=== PATIENT | female | born 1950 | race Caucasian/White ===

== ENCOUNTER 2017-02-19 09:20 | Day surgery (SDC) | payer MEDICARE ==
[~2017-02-19 09:20] MED LIST: PROPOFOL INJ 200 MG/20 ML VIAL IV ONE
[2017-02-19 11:31] VITALS: BP 100/65
--- NOTE | 2017-02-19 13:07 | Operative Report ---
Operative Report DATE OF SURGERY: 02/19/17 Operative Report: The risks, benefits and alternatives of the procedure including risks of bleeding, perforation requiring surgery are explained to the patient detail and informed consent is obtained. Patient is placed in a left, lateral decubital position. A rectal examination was done which did not reveal any masses, tears or fissures. An Olympus videoscope was inserted into the patient's rectum. Timeout is called. Propofol medications administered. The scope was then gradually advanced all the way to the cecum. The cecum was identified by the usual anatomical landmarks including the ileocecal valve and the appendiceal office. Photodocumentation was obtained. Prep is good. The scope was then sequentially pulled back via the rest segments of the colon including the ascending colon, hepatic flexure, transverse colon, splenic flexure, descending colon and finally into the rectosigmoid portions of the colon. Retroflexion maneuvers performed. PREOPERATIVE DIAGNOSIS: colon rectal cancer screening POSTOPERATIVE DIAGNOSIS: 2 polyps which are removed via snare polypectomy and retrieved. OPERATION: Colonoscopy with snare polypectomy SURGEON: ABENA BELLA ANESTHESIA: LMAC TISSUE REMOVED OR ALTERED: Both polyps were retrieved. COMPLICATIONS: None. ESTIMATED BLOOD LOSS: none. INTRAOPERATIVE FINDINGS: Colon polyps 2. No AVMs or diverticulosis noted. Normal dentate line. PROCEDURE: Patient tolerated procedure well. No immediate postprocedure complications are noted. Patient is discharged in good condition. Discharge date 02/19/2017. Discharge diet: Regular. Discharge activity: Regular. We'll await on biopsies. Five-year surveillance colonoscopy. 2-3 week follow-up to discuss findings. Patient is instructed to call the office or proceed to the emergency room should there be any further problems or questions.
== END 2017-02-19 11:25 | disposition home or self-care (01) ==
LOC: END 09:20
PROVIDERS: ATTEND Internal Medicine Gastroenterology
PROC: 0DBL8ZX Excision of Transverse Colon, Via Natural or Artificial Opening Endoscopic, Diagnostic (ICD-10-PCS; 2017-02-19)
PROC: 0DBH8ZX Excision of Cecum, Via Natural or Artificial Opening Endoscopic, Diagnostic (ICD-10-PCS; principal; 2017-02-19 11:30)
DX: Z12.11 Encounter for screening for malignant neoplasm of colon (principal); D12.0 Benign neoplasm of cecum; K63.5 Polyp of colon; Z79.899 Other long term (current) drug therapy; Z88.2 Allergy status to sulfonamides
CPT/HCPCS: 45385; 88305 ×2; J2704; 810

== ENCOUNTER 2018-08-13 22:08 | Emergency (ER) | payer MEDICARE ==
[2018-08-13] MEDS ORDERED: DIPH/PERTUSS(ACELL)/TETANUS VAC/PF 0.5 ML SYR (>=10YO) IM ONE (23:28)
[2018-08-13] MEDS ORDERED: CEPHALEXIN 500 MG CAPSULE PO ONE (23:28)
--- NOTE | 2018-08-13 23:33 | ER Document Report ---
HPI - HPI Pain Level: 2 Notes: Patient is a 67-year-old female with a history of hypertension who presents to the ED complaining of puncture and abrasions to her left posterior leg 4 days ago by hawk wire. Patient states that she cleaned it out at home and has been watching it since. Patient states that the deeper puncture is starting to become red around it without any purulent discharge. She has not noticed any red streaks. Patient does not have any pain associated at this time. She has an allergy to sulfa. Unknown last tetanus. Denies any headache, fever, URI, sore throat, chest pain, palpitations, syncope, cough, shortness of breath, wheeze, dyspnea, abdominal pain, nausea/vomiting/diarrhea, urinary retention, dysuria, hematuria, loss of control of bowel or bladder, numbness/tingling, saddle anesthesia, muscle paralysis/weakness, or rash. - ROS Systems Reviewed and Negative: Yes All other systems reviewed and negative Past Medical History - Social History Smoking Status: Never Smoker Family History: Reviewed & Not Pertinent - Past Medical History Cardiac Medical History: Reports: Hx Hypertension Denies: Hx Coronary Artery Disease, Hx Heart Attack Pulmonary Medical History: Denies: Hx Asthma, Hx Bronchitis, Hx COPD, Hx Pneumonia Neurological Medical History: Denies: Hx Cerebrovascular Accident, Hx Seizures Musculoskeletal Medical History: Denies Hx Arthritis - Immunizations Hx Diphtheria, Pertussis, Tetanus Vaccination: No Vertical Provider Document - CONSTITUTIONAL Agree With Documented VS: Yes Notes: PHYSICAL EXAMINATION: GENERAL: Well-appearing, well-nourished and in no acute distress. LUNGS: Breath sounds clear to auscultation bilaterally and equal. No wheezes rales or rhonchi. HEART: Regular rate and rhythm without murmurs, rubs, gallops. Musculoskeletal: Left LE: FROM to passive/active. Strength 5+/5. N/V intact. Extremities: No cyanosis, clubbing, or edema b/l. Peripheral pulses 2+. Capillary refill less than 3 seconds. NEUROLOGICAL: Cranial nerves grossly intact. Normal speech, normal gait. Normal sensory, motor exams PSYCH: Normal mood, normal affect. SKIN: Left calf: there are superficial scabbed over abrasions noted. there is a 1cm superficial puncture lac, old, to the calf as well. No purulence. No warmth, induration, streaks, or fluctuance. Non-tender to palpation. + mild erythema surrounding the 1cm puncture/lac. - INFECTION CONTROL TRAVEL OUTSIDE OF THE [place] IN LAST 30 DAYS: No Course - Re-evaluation Re-evalutation: 08/13/18 23:31 Patient is an afebrile, well-hydrated, 67-year-old female who presents to the ED with a puncture/laceration/abrasions from hawk wire 4 days ago. Toes are acceptable without any significant tachycardia, tachypnea, or hypoxia. PE is otherwise unremarkable for any neurovascular compromise, obvious tendon/ ligament rupture, obvious fracture/dislocation, septic joint, obvious retained foreign body. Wound was thoroughly irrigated and cleansed. Tetanus was updated today. Wound dressing placed and wound instructions reviewed. First dose of Keflex given p.o. today. I will send her home with a prescription for Keflex. Conservative measures for symptoms. Recheck with your PCM in 2-3 days. Return to the ED with any worsening/concerning symptoms otherwise as reviewed in discharge. Patient is in agreement. - Vital Signs Vital signs: Temp Pulse Resp BP Pulse Ox 98.0 F 76 146/89 H 96 08/13/18 23:18 10 23:18 08/13/18 23:18 08/13/18 23:18 Discharge - Discharge Clinical Impression: Puncture wound of calf Qualifiers: Encounter type: initial encounter Laterality: left Qualified Code(s): S81.832A - Puncture wound without foreign body, left lower leg, initial encounter Condition: Stable Disposition: HOME, SELF-CARE Instructions: Soap Cleansing ([facility]), Antibiotic Ointment Protection ([facility]), Tetanus Immunization Given ([facility]), Prophylactic Antibiotic ([facility]) Additional Instructions: Keep the skin clean Wash with soap and water Tylenol/ibuprofen if needed Triple antibiotic ointment daily Take medication as directed Monitor for any worsening symptoms Recheck with your PCM in 3-5 days Return to the ED with any worsening symptoms and/or development of fever, headache, chest pain, palpitations, syncope, shortness of breath, trouble breathing, abdominal pain, n/v/d, abscess, purulent discharge, red streaks, worsening swelling, or other worsening symptoms that are concerning to you. Prescriptions: Cephalexin Monohydrate [Keflex 500 mg Capsule] 500 mg PO TID #30 capsule Forms: Elevated Blood Pressure Referrals: [facility] ([place]) [Provider Group] - Follow up as needed
[2018-08-14 00:25] VITALS: BP 134/91
== END 2018-08-14 00:25 | disposition home or self-care (01) ==
LOC: ER 22:08
DX: S81.832A Puncture wound without foreign body, left lower leg, initial encounter (principal); W26.8XXA Contact with other sharp object(s), not elsewhere classified, initial encounter; I10 Essential (primary) hypertension; Z23 Encounter for immunization
CPT/HCPCS: 99282; 90471; 90715; A9270